=== PATIENT | female | born 1965 | race Caucasian/White ===

== ENCOUNTER 2019-04-22 07:29 | Day surgery (SDC) | payer BC ==
[2019-04-16 12:24] LABS: BASOPHILS % (AUTO) 0.7 % (0.0-5.0); EOSINOPHILS % (AUTO) 2.9 % (0.0-8.0); HEMATOCRIT 40.4 % (36-48); LYMPHOCYTES % (AUTO) 24.6 % (21.0-51.0); MEAN CORPUSCULAR HEMOGLOBIN 30.7 pg (27.0-33.0); MEAN CORPUSCULAR HGB CONC 33.5 g/dL (32.0-36.0); MEAN CORPUSCULAR VOLUME 91.6 fL (79-99); MONOCYTES % (AUTO) 9.6 % (3.0-13.0); NEUTROPHILS % (AUTO) 62.2 % (40.0-77.0); PLATELET COUNT (AUTO) 251 K/uL (130-400); RED BLOOD CELL COUNT(AUTO) 4.41 MIL/uL (4.00-5.50); WHITE BLOOD COUNT (AUTO) 6.8 K/uL (4.8-10.8)
[2019-04-16 12:46] VITALS: BP 140/72
--- NOTE | 2019-04-19 11:50 | NUR ---
ALLERGIES: NOTIFIED RAFI CORADO AT OR REGARDING PATIENT ALLERGIC TO PCN. REACTION UNKNOWN PER PATIENT.
[2019-04-22] VITALS (17 sets, daily range): BP systolic 120–138; BP diastolic 58–76
[~2019-04-22] VITALS: Ht 154.9 cm; Wt 103.0 kg
[~2019-04-22 07:29] MED LIST: AMLO1CAP11 PO; ATOR20TA65 PO; CETI10TA57 PO; DULO60CA63 PO; LACTATED RINGERS 1000ML 1,000 ML IV SCH; MELO-106 PO; PREG50 PO
[2019-04-22] MEDS ORDERED: MIDAZOLAM HCL 1 MG/ML 2ML VIAL ONE (08:32)
[2019-04-22] MEDS ORDERED: LIDOCAINE PF 2% 5ML ABBOJECT ONE (08:32)
[2019-04-22] MEDS ORDERED: ONDANSETRON HCL 4 MG/2 ML VIAL ONE (08:33)
[2019-04-22] MEDS ORDERED: PROPOFOL 10 MG/ML 20ML VIAL IV ONE ×2 (08:33→09:06)
[2019-04-22] MEDS ORDERED: ROCURONIUM 10MG/1ML SYR 10 MG/ML ML ONE (08:33)
[2019-04-22] MEDS ORDERED: FENTANYL CITRATE PF 50 MCG/1 ML 2ML VIAL ONE (08:34)
--- NOTE | 2019-04-22 10:36 | NUR ---
POST-PROCEDURE RECEIVED FROM RECOVERY ROOM S/P D&C. AWAKE IN NO ACUTE DISTRESS. CONNECTED TO CONTINUOUS CARDIOPULMONARY MONITORING. GENNARO PAD CLEAN AND DRY. CALL LIGHT W/IN REACH, BED IN LOWEST POSITION, SIDE RAILS UP X2.
--- NOTE | 2019-04-22 10:37 | NUR ---
ACTIVITY AMBULATED TO RR WITH STANDBY ASSIST X1. GAIT STEADY. VOIDED.
--- NOTE | 2019-04-22 11:05 | NUR ---
DISCHARGE INSTRUCTIONS DAY PT DISCHARGE INSTRUCTION SHEET, MED REC, HOME D/C INSTRUCTIONS FOR D&C, AND PT EDUCATION REVIEWED WITH PT AND . PT VERBALIZED UNDERSTANDING. OPPORTUNITY GIVEN TO ASK QUESTIONS. QUESTION ADDRESSED.
--- NOTE | 2019-04-22 11:18 | NUR ---
DISCHARGE DISCHARGED VIA W/C IN NO ACUTE DISTRESS.
== END 2019-04-22 11:18 | disposition home or self-care (01) ==
LOC: DAH 07:29
PROVIDERS: ATTEND Specialist
DX: N95.0 Postmenopausal bleeding (principal); Z98.890 Other specified postprocedural states; Z88.0 Allergy status to penicillin; Z88.8 Allergy status to other drugs, medicaments and biological substances; F32.9 Major depressive disorder, single episode, unspecified; I10 Essential (primary) hypertension; M19.90 Unspecified osteoarthritis, unspecified site; Z79.899 Other long term (current) drug therapy; Z83.3 Family history of diabetes mellitus; E66.9 Obesity, unspecified
CPT/HCPCS: 36415; 85025; 88305; A4351; J2001; J2250; J2405; J2704; J3010; J7120

== ENCOUNTER → 2022-04-04 | Outpatient (CLI) | payer OTHER ==
[~2022-04-04] MED LIST changes: +AMLO-73 PO; -AMLO1CAP11 PO; -DULO60CA63 PO; +DULO60CA64 PO; -LACTATED RINGERS 1000ML 1,000 ML IV SCH
== END | disposition home or self-care (01) ==
LOC: RAH 14:26
PROVIDERS: ATTEND Family Medicine
DX: M47.816 Spondylosis without myelopathy or radiculopathy, lumbar region (principal); M47.896 Other spondylosis, lumbar region; M25.551 Pain in right hip; M25.78 Osteophyte, vertebrae; Z02.71 Encounter for disability determination; Z90.49 Acquired absence of other specified parts of digestive tract; M19.041 Primary osteoarthritis, right hand; M16.11 Unilateral primary osteoarthritis, right hip
CPT/HCPCS: 72100; 73120; 73502

== ENCOUNTER → 2023-10-13 | Outpatient (CLI) | payer BC | END | disposition home or self-care (01) | LOC: RAH 12:40 | PROVIDERS: ATTEND Nurse Practitioner Family | DX: Z12.31 Encounter for screening mammogram for malignant neoplasm of breast (principal); R92.323 Mammographic fibroglandular density, bilateral breasts | CPT/HCPCS: 77067 ==